=== PATIENT | male | born 1975 | race African-American/Black ===

== ENCOUNTER 2017-11-08 00:11 | Emergency (ER) | payer SELFPAY ==
[~2017-11-08] VITALS: Ht 188 cm; Wt 84.0 kg
[2017-11-08 00:25] VITALS: BP 158/94
== END 2017-11-08 00:25 | disposition home or self-care (01) ==
LOC: ER 00:11
DX: R00.0 Tachycardia, unspecified (principal); Z78.1 Physical restraint status; F11.10 Opioid abuse, uncomplicated; F15.10 Other stimulant abuse, uncomplicated
CPT/HCPCS: 99283; Z7610